=== PATIENT | male | born 1940 | race Caucasian/White ===

== ENCOUNTER → 2017-02-21 07:31 | Outpatient (CLI) | payer MEDICARE, OTHER ==
[2014-10-07 13:34] VITALS: BMI 27.9
[~2017-02-21 07:31] MED LIST: ALTACE2.5 MG PO; ANTIOXIDANT; ASPIRIN325 MG PO; BAYER CHEWABLE81 MG PO; FISH OIL 1,0001 CA1; IPRAT-ALBUT 0.5-3 ML UPD; LEVAQUIN750 MG PO; LIPITOR20 MG; MUCINEX600 MG PO; PLAVIX75 MG PO; PULMICORT0.5 MG/21 UPD
== END | disposition home or self-care (01) ==
LOC: D.RT 07:31
DX: J45.909 Unspecified asthma, uncomplicated (principal)

== ENCOUNTER → 2018-12-17 08:16 | Outpatient (CLI) | payer MEDICARE, OTHER ==
[2014-10-07 13:34] VITALS: BMI 27.9
--- NOTE | 2018-12-19 09:40 | ST ---
PATIENT:ALISSON CHILEL MEDICAL RECORD: [id number] SEX: M LOCATION:D.CT ORDER #: ADMISSION DATE: 12/17/18 AGE OF PATIENT: 78 REFERRING PHYSICIAN: INTERPRETING PHYSICIAN: CAIN VALDOVINOS MD DATE OF SERVICE: 12/17/2018 PROCEDURE: Nuclear stress test. INDICATIONS: Angina, coronary artery disease, hypertension, shortness of breath. He was exercised on standard Lexiscan protocol with 31 mCi of sestamibi injected at peak stress, 11 mCi were used previously for rest images. FINDINGS: Gated SPECT reveals preserved ejection fraction at 71% with decreased thickening and brightening throughout the inferior segments. SPECT imaging: Cardiolite was used as myocardial perfusion agent. There is a fixed perfusion defect inferiorly. This includes basal, mid, apical inferior segments as well as the apex itself compatible with previous inferoapical myocardial infarction. No evidence of reversibility and the remaining segments are with homogeneous uptake at rest and stress. OVERALL IMPRESSION: This is a minimally abnormal, but stable nuclear stress test showing a previous inferior myocardial infarction. No evidence of reversible ischemia. Preserved ejection fraction. Continue medical management of the coronary artery disease and cardiac risk factors. TRANSINT:[id number] Voice Confirmation ID: [id number] DOCUMENT ID: [id number] CAIN VALDOVINOS MD at 0940 CC: SELVIN ARROYO [id number] DICTATION DATE: 12/17/18 1610 [employer]CR[employer]E BUILDING [employer]ER: 12/18/18 1011 DEP CLI 12/17/18 [id number] [place] [address]
== END | disposition home or self-care (01) ==
LOC: D.CT 08:16
PROVIDERS: ATTEND Internal Medicine Interventional Cardiology
DX: I70.213 Atherosclerosis of native arteries of extremities with intermittent claudication, bilateral legs (principal)